=== PATIENT | female | born 1945 | race Caucasian/White ===

== ENCOUNTER 2016-11-13 22:50 | Emergency (ER) | payer MEDICAID ==
[~2016-11-13] VITALS: Ht 152.4 cm; Wt 61.2 kg
[2016-11-13 22:50] VITALS: BP 152/77; PULSE 98; RESP 20; TEMP 98.3; O2SAT 97
--- NOTE | 2016-11-13 22:50 | NUR ---
Patient to ER bed 7 to gown for evaluation. Side rails up. Report given to NICOLE PORTILLO.
--- NOTE | 2016-11-13 22:52 | NUR ---
Pt awake alert oriented x 4. Clear speech. Pt stated buring when voiding and urinary frequency. Denied SOB at the time. Repositioned for comfort. Pt stable. Will continue to monitor
--- NOTE | 2016-11-13 23:13 | NUR ---
ER at bedside examining patient.
[2016-11-13] MEDS ORDERED: SULFAMETHOXAZOLE/TRIMETHOPR DS 1 TABLET PO ONE (23:15)
[2016-11-13] MEDS ORDERED: traMADol HCL HCL 50 MG TABLET (ULTRAM) PO ONE (23:15)
[2016-11-13 23:20] LABS: BILIRUBIN,URINE NEGATIVE (NEGATIVE); BLOOD, URINE 2+ (NEGATIVE); CLARITY/URINE SL HAZY (CLEAR); COLOR,URINE YELLOW (YELLOW); GLUCOSE,URINE NEGATIVE (NEGATIVE); KETONES,URINE NEGATIVE (NEGATIVE); LEUKOCYTE ESTERASE ,URINE 3+ (NEGATIVE); NITRITE, URINE NEGATIVE (NEGATIVE); PH,URINE 6.5 (5.0-8.0); PROTEIN URINE TRACE (NEGATIVE); UROBILINOGEN,URINE 0.2 (0.2-1.0)
[2016-11-13 23:32] LABS: BACTERIA,URINE FEW /HPF (None Seen); MUCUS,URINE None Seen /LPF (None Seen); RBC,URINE 0-3 /HPF (0-3); WBC,URINE >100 /HPF (0-3)
[2016-11-13 23:52] VITALS: BP 148/72; PULSE 98; RESP 20; TEMP 98.3; O2SAT 97
--- NOTE | 2016-11-13 23:52 | NUR ---
Patient given written and verbal discharge instructions and verbalizes understanding. ER MD discussed with patient the results and treatment provided. Given copies of tests performed in ER. Patient in stable condition. ID arm band removed. Rx of Macrobid one cap BID and tramadol 50mg one tab every six hours as needed. given. Patient educated on pain management and to follow up with PMD. Pain Scale 2/10 at the time. Pt stated able to tolerate at the time. Opportunity for questions provided and answered.
--- NOTE | 2016-11-16 16:08 | NUR ---
Per daughter, pt is currently taking her abx and is feeling better.
== END 2016-11-13 23:52 | disposition home or self-care (01) ==
LOC: SED 22:50
DX: N39.0 Urinary tract infection, site not specified (principal); I10 Essential (primary) hypertension; E11.9 Type 2 diabetes mellitus without complications; E78.00 Pure hypercholesterolemia, unspecified
CPT/HCPCS: 81000-TC; 87086; 87186-TC; 99284

== ENCOUNTER 2016-11-20 22:14 | Emergency (ER) | payer MEDICAID ==
[~2016-11-20] VITALS: Ht 147.3 cm; Wt 62.1 kg
[2016-11-20 22:14] VITALS: BP_SYST 154
[2016-11-20 23:31] LABS: BILIRUBIN,URINE NEGATIVE (NEGATIVE); BLOOD, URINE 1+ (NEGATIVE); CLARITY/URINE CLEAR (CLEAR); COLOR,URINE YELLOW (YELLOW); GLUCOSE,URINE NEGATIVE (NEGATIVE); KETONES,URINE NEGATIVE (NEGATIVE); LEUKOCYTE ESTERASE ,URINE TRACE (NEGATIVE); NITRITE, URINE NEGATIVE (NEGATIVE); PROTEIN URINE NEGATIVE (NEGATIVE); UROBILINOGEN,URINE 0.2 (0.2-1.0)
[2016-11-20 23:42] LABS: BACTERIA,URINE FEW /HPF (None Seen); RBC,URINE 0-3 /HPF (0-3)
[2016-11-20 23:43] LABS: MUCUS,URINE None Seen /LPF (None Seen)
[2016-11-21] MEDS ORDERED: MAG-AL HYDROX/SIMETH 30 ML UDC PO ONE (00:30)
[2016-11-21] MEDS ORDERED: BELLADONNA ALKALOIDS/PHENOBARB 5 ML UDC PO ONE (00:30)
[2016-11-21] MEDS ORDERED: ONDANSETRON HCL 4 MG/2 ML VIAL IVP ONE (00:30)
[2016-11-21] MEDS ORDERED: LIDOCAINE VISCOUS 2%, 15 ML UDC MM ONE (00:30)
[2016-11-21 00:51] LABS: BASOPHILS % (AUTO) 0.4 % (0.0-2.0); EOSINOPHILS # (AUTO) 0.3 K/uL (0.0-0.4); EOSINOPHILS % (AUTO) 3.6 % (0.0-4.0); LYMPHOCYTES # (AUTO) 2.9 K/uL (1.0-5.5); LYMPHOCYTES % (AUTO) 35.6 % (20.5-51.5); MEAN CORPUSCULAR HEMOGLOBIN 29 pg (27-31); MEAN CORPUSCULAR HGB CONC 34 % (32-36); MEAN CORPUSCULAR VOLUME 85 fL (79.0-98.0); MONOCYTES # (AUTO) 0.6 K/uL (0.0-1.0); MONOCYTES % (AUTO) 7.6 % (1.7-9.3); NEUTROPHILS # (AUTO) 4.3 K/uL (1.8-7.7); NEUTROPHILS % (AUTO) 52.8 % (40.0-70.0); PLATELET COUNT (AUTO) 379 K/uL (130-430); RED BLOOD CELL COUNT(AUTO) 4.13 MIL/uL (4.2-6.2); RED CELL DISTRIBUTION WIDTH 12.1 % (9.0-15.0); WHITE BLOOD COUNT (AUTO) 8.1 K/uL (4.8-10.8)
[2016-11-21 01:20] LABS: ANION GAP 5 (5-15); CHLORIDE 104 mmol/L (98-107); CREATININE 0.87 mg/dL (0.55-1.30); GFR AFRICAN AMERICAN 83 mL/min (>90); GLUCOSE 137 mg/dL (70-99); POTASSIUM 4.1 mmol/L (3.5-5.1); SODIUM SERUM 136 mmol/L (136-145); UREA NITROGEN, BLOOD 12 mg/dL (8-21)
[2016-11-21 01:24] LABS: ALANINE AMINOTRANSFERASE 28 U/L (12-78); ALBUMIN 3.3 g/dL (3.4-4.8); ASPARTATE AMINOTRANSFERASE 21 U/L (10-37); TOTAL BILIRUBIN 0.3 mg/dL (0.0-1.0); TOTAL PROTEIN, SERUM 7.6 g/dL (6.4-8.3)
[2016-11-21 01:38] LABS: LIPASE 271 U/L (73-393)
[2016-11-21 02:10] VITALS: BP_SYST 142
== END 2016-11-21 02:10 | disposition home or self-care (01) ==
LOC: SED 22:14
DX: K29.70 Gastritis, unspecified, without bleeding (principal); N39.0 Urinary tract infection, site not specified; E11.9 Type 2 diabetes mellitus without complications; I10 Essential (primary) hypertension; E78.00 Pure hypercholesterolemia, unspecified
CPT/HCPCS: 36415; 80053; 81000; 83690; 84484; 85025; 87086; 93005; 96374; 99285; J2001; J2405; J7030

== ENCOUNTER 2021-10-19 06:53 | Day surgery (SDC) | payer MEDICAID, SELFPAY ==
[~2021-10-19] VITALS: Ht 160 cm; Wt 58.1 kg
[2021-10-19] MEDS ORDERED: MIDAZOLAM HCL 5 MG/5 ML VIAL ONE (08:14)
[2021-10-19] MEDS ORDERED: fentaNYL CITRATE/PF 100 MCG/2 ML AMP ONE (08:14)
[2021-10-19 10:58] VITALS: BP_SYST 178
== END 2021-10-19 10:00 | disposition home or self-care (01) ==
LOC: SDS 06:53 → SMU 06:54 → SDS 10:00
PROVIDERS: ATTEND Internal Medicine Gastroenterology
DX: R19.4 Change in bowel habit (principal); K64.8 Other hemorrhoids; K63.5 Polyp of colon; K58.0 Irritable bowel syndrome with diarrhea; K21.9 Gastro-esophageal reflux disease without esophagitis; Z86.010 Personal history of colon polyps; E11.9 Type 2 diabetes mellitus without complications; Z79.84 Long term (current) use of oral hypoglycemic drugs; Z79.899 Other long term (current) drug therapy; Z20.822 Contact with and (suspected) exposure to COVID-19
CPT/HCPCS: 36415; 45380; 82962; 87426; 88305; 99152; G0378; J2250; J3010; U0003